=== PATIENT | male | born 1965 | race Caucasian/White ===

== ENCOUNTER 2017-02-05 09:55 | Emergency (ER) | payer BC ==
[~2017-02-05] VITALS: Ht 175.3 cm; Wt 94.0 kg
[2017-02-05 09:59] VITALS: Ht 175.3 cm; Wt 94.0 kg
[2017-02-05] MEDS ORDERED: HYDROCODONE/APAP (5/325) TAB PO ONE (10:30)
--- NOTE | 2017-02-05 10:57 | RADRPT ---
PROCEDURE: XR Knee. CLINICAL INDICATION: Left knee pain. TECHNIQUE: 3 views of the left knee were obtained. The images reviewed on a PACS workstation. COMPARISON: None. FINDINGS: The bones appear intact, with no evidence of fracture, erosion, demineralization, or dislocation. Os teophytosis is seen in the medial and patellofemoral compartments with mild joint space narrowing. S purring of the tibial spines is seen. No evidence of a joint effusion is seen. No soft tissue swel ling is present. IMPRESSION: 1. No acute fracture or dislocation. 2. Mild osteoarthritis in the medial and patellofemoral compartments. RPTAT: HPNM Physician Merly Date Time Electronically viewed and signed by Physician Merly on 02/05/2017 10:57 /
[2017-02-05] MEDS ORDERED: HYDR-906 PO (11:25)
[2017-02-05 11:40] VITALS: BP 132/71; PULSE 70; RESP 18; TEMP 98.6
--- NOTE | 2017-02-05 12:33 | ERD ---
ER Documentation Chief Complaint Date/Time DATE: 02/05/17 TIME: 12:24 Chief Complaint "l knee pain, popped it going down the stairs" pt ambulatory -swelling HPI 51-year-old male patient with no significant past medical history presents the ED complaining of left knee pain and injury that started earlier today as he was going down the stairs and walking in front of his mother's home. States that he was walking and he felt the left knee give out and twisted to the right side. Reports that he has a right reconstructive surgery of his knee. Denies any fever, chills, loss of sensation, loss of range of motion, weakness, numbness or tingling. ROS All systems reviewed and are negative except as per history of present illness. Medications Home Meds Active Scripts Hydrocodone/Acetaminophen (W[place]iti 5-325 Tablet) 1 Each Tablet, 1 TAB PO Q6H Y for PAIN, #7 TAB Prov:AIRAM SINGER PA-C 02/05/17 Allergies Allergies: Coded Allergies: No Known Allergy (Unverified , 02/05/17) PMhx/Soc Medical and Surgical Hx: pt denies Medical Hx, pt denies Surgical Hx Anesthesia Reaction: No Hx Neurological Disorder: No Hx Respiratory Disorders: No Hx Cardiac Disorders: No Hx Psychiatric Problems: No Hx Miscellaneous Medical Probl: No Hx Alcohol Use: Yes Hx Substance Use: No Hx Tobacco Use: No Physical Exam Vitals Vital Signs Date Time Temp Pulse Resp B/P Pulse Ox O2 Delivery O2 Flow Rate FiO2 02/05/17 11:40 98.6 70 18 132/71 99 02/05/17 09:59 98.4 67 18 145/74 99 Physical Exam Const: [id number], well-nourished. In no acute distress. Head: Atraumatic, normocephalic Eyes: Normal Conjunctiva without injection ENT: Normal external ear, nose and mouth. Neck: Full range of motion. No meningismus. Resp: Clear to auscultation bilaterally. No wheezing, rhonchi, rales, or crackles. No accessory muscle use. No retractions. Cardio: Regular rate and rhythm, no murmurs Skin: No petechiae or rashes Back: No midline tenderness. No CVA tenderness. Ext: No cyanosis, or edema. Cap refill less than 2 seconds. Distal pulses intact bilaterally. Tenderness to palpation of the infrapatellar region. No surrounding erythema, edema, warmth to touch. No fluctuance noted. No warmth to touch. Neur: Awake and alert. Limited gait due to pain. Muscle strength 5/5. Sensation intact bilaterally. Psych: Normal Mood and Affect Results 24 hrs Current Medications Medications (Trade) Dose Ordered Sig/Yessica Route PRN Reason Start Time Stop Time Status Last Admin Dose Admin Acetaminophen/ Hydrocodone Bitart ([place] (5/325)) 1 tab ONCE ONCE PO 02/05/17 10:30 02/05/17 10:31 DC 02/05/17 10:28 Procedures/MDM 51-year-old female patient with no significant past medical history presents to the ED complaining of a left knee injury. Patient is afebrile nontoxic appearing. Patient was further evaluated with a left knee x-ray. PROCEDURE: XR Knee. CLINICAL INDICATION: Left knee pain. TECHNIQUE: 3 views of the left knee were obtained. The images reviewed on a PACS workstation. COMPARISON: None. FINDINGS: The bones appear intact, with no evidence of fracture, erosion, demineralization , or dislocation. Osteophytosis is seen in the medial and patellofemoral compartments with mild joint space narrowing. Spurring of the tibial spines is seen. No evidence of a joint effusion is seen. No soft tissue swelling is present. IMPRESSION: 1. No acute fracture or dislocation. 2. Mild osteoarthritis in the medial and patellofemoral compartments. Patient is placed in a left knee angel wrap. Crutches were given to patient to help with ambulation. Splint Assessment: Neurovascularly intact pre and post splint placement with good fit. Patient's extremity symptoms have stabilized while they have been evaluated in the department and are appropriate for outpatient follow up. No evidence of fractures, dislocations, compartment syndrome, neurologic injury, vascular injury, open joint, open fracture, tendon laceration, septic arthritis, osteomyelitis, DVT, foreign body, or other emergent conditions. Discharge medications: Wapiti. Patient reports ibuprofen does not work for his pain. Cures generated - no recent narcotics filled. Low suspicion for drug seeking behavior. Follow up with primary care physician in 1-2 days for an orthopedic referral. Instructed patient to return to the ED sooner for any worsening symptoms. Patient's questions were answered. Patient understood and agreed with discharge plan. Patient discharged stable. Departure Diagnosis: Primary Impression: Knee injury Encounter type: initial encounter Laterality: left Qualified Code: S89.92XA - Knee injury, left, initial encounter Condition: Stable Patient Instructions: Reducing Knee Pain and Swelling, Knee Pain, Meniscus Injury (Possible) Referrals: COMM[facility] YOU HAVE RECEIVED A MEDICAL SCREENING EXAM AND THE RESULTS INDICATE THAT YOU DO NOT HAVE A CONDITION THAT REQUIRES URGENT TREATMENT IN THE EMERGENCY DEPARTMENT. FURTHER EVALUATION AND TREATMENT OF YOUR CONDITION CAN WAIT UNTIL YOU ARE SEEN IN YOUR DOCTORS OFFICE WITHIN THE NEXT 1-2 DAYS. IT IS YOUR RESPONSIBILITY TO MAKE AN APPOINTMENT FOR FOLOW-UP CARE. IF YOU HAVE A PRIMARY DOCTOR --you should call your primary doctor and schedule an appointment IF YOU DO NOT HAVE A PRIMARY DOCTOR YOU CAN CALL OUR PHYSICIAN REFERRAL HOTLINE AT IF YOU CAN NOT AFFORD TO SEE A PHYSICIAN YOU CAN CHOSE FROM THE FOLLOWING [facility] [address] [facility]. [facility] [address] [employer] [facility] [address] [facility] [address] [facility] [address] [facility]. [facility] [address] [facility]. [facility] YOU HAVE RECEIVED A MEDICAL SCREENING EXAM AND THE RESULTS INDICATE THAT YOU DO NOT HAVE A CONDITION THAT REQUIRES URGENT TREATMENT IN THE EMERGENCY DEPARTMENT. FURTHER EVALUATION AND TREATMENT OF YOUR CONDITION CAN WAIT UNTIL YOU ARE SEEN IN YOUR DOCTORS OFFICE WITHIN THE NEXT 1-2 DAYS. IT IS YOUR RESPONSIBILITY TO MAKE AN APPOINTMENT FOR FOLOW-UP CARE. IF YOU HAVE A PRIMARY DOCTOR --you should call your primary doctor and schedule and appointment IF YOU DO NOT HAVE A PRIMARY DOCTOR YOU CAN CALL OUR PHYSICIAN REFERRAL HOTLINE AT . IF YOU CAN NOT AFFORD TO SEE A PHYSICIAN YOU CAN CHOSE FROM THE FOLLOWING [facility], [facility] INSTITUTIONS: [facility] [address] [place] [address] [facility] [address] [place] [address] [facility] [address] [place] [address] [facility] 7 a.m.- 11 p.m. Every Day of the Week NO APPOINTMENT OR AUTHORIZATION NEEDED SO [facility] [place] Hours: Mon-Fri 9:00 AM - 5:00 PM Additional Instructions: Call your primary care doctor TOMORROW for an appointment during the next 1-2 days for a referral to an orthopedic physician for a possible MRI.See the doctor sooner or return here if your condition worsens before your appointment time. You have been given a medicine which may cause drowsiness.DO NOT DRIVE OR OPERATE DANGEROUS MACHINERY while taking this medicine! AIRAM SINGER PA-C February 05, 2017 12:33
== END 2017-02-05 11:41 | disposition home or self-care (01) ==
LOC: FTE 09:55
DX: S89.92XA Unspecified injury of left lower leg, initial encounter (principal); X50.9XXA Other and unspecified overexertion or strenuous movements or postures, initial encounter; Y92.009 Unspecified place in unspecified non-institutional (private) residence as the place of occurrence of the external cause
CPT/HCPCS: 73562; Z7610

== ENCOUNTER 2018-08-11 19:45 | Emergency (ER) | END 2018-08-11 22:04 | disposition left against medical advice (07) ==

== ENCOUNTER 2018-08-19 15:08 | Emergency (ER) | END 2018-08-19 16:54 | disposition home or self-care (01) ==